=== PATIENT | female | born 1970 | race Caucasian/White ===

== ENCOUNTER → 2017-03-11 | Outpatient (CLI) | payer BC ==
--- NOTE | 2017-03-11 09:27 | FL ---
EXAMINATION TYPE: FL barium swallow DATE OF EXAM: 03/11/2017 9:01 AM CLINICAL HISTORY: History of acid reflux for years on medication. History of prior esophageal dilatat ion for narrowing per patient. History of pyloric stenosis per patient. Dysphasia per order. TECHNIQUE: A double contrast esophagram is performed utilizing air and barium. A total of 54 second s of fluoroscopic time was utilized during procedure. COMPARISON: None FINDINGS: The esophagus shows normal motility and emptying into the stomach. No evidence of hiatal h ernia or significant stricture noted. No intraluminal mass identified. No significant gastroesophagea l reflux was seen during real time performance of this study. IMPRESSION: No significant abnormality is seen currently.
== END | disposition home or self-care (01) ==
LOC: RADFLWHC 08:30
PROVIDERS: ATTEND Surgery
DX: K21.9 Gastro-esophageal reflux disease without esophagitis (principal)
CPT/HCPCS: 74220

== ENCOUNTER → 2017-05-08 | Outpatient (CLI) | payer BC ==
[2017-05-08 10:13] LABS: Basophils % (A) 1 %; CH 30.4; CHCM 32.6; Eosinophils # (A) 0.1 k/uL (0-0.7); Eosinophils % (A) 2 %; HCT 41.8 % (34.0-46.0); HDW 2.34; HGB 14.1 gm/dL (11.4-16.0); Luc % (Auto) 2; Lymphocytes # (A) 1.1 k/uL (1.0-4.8); Lymphocytes % (A) 25 %; MCH 31.7 pg (25.0-35.0); MCHC 33.8 g/dL (31.0-37.0); MCV 93.7 fL (80.0-100.0); Mean Platelet Volume 7.4; Monocytes # (A) 0.4 k/uL (0-1.0); Monocytes % (A) 8 %; Neutrophils # (A) 2.7 k/uL (1.3-7.7); Neutrophils % (A) 62 %; RBC 4.46 m/uL (3.80-5.40); WBC 4.3 k/uL (3.8-10.6); WBC (Perox) 4.41
[2017-05-08 10:28] LABS: ALT 29 U/L (9-52); AST 22 U/L (14-36); Alkaline Phosphatase 60 U/L (38-126); Anion Gap 10 mmol/L; Blood Urea Nitrogen 16 mg/dL (7-17); Calcium 9.3 mg/dL (8.4-10.2); Carbon Dioxide 22 mmol/L (22-30); Chloride 110 mmol/L (98-107); Cholesterol 167 mg/dL (<200); Glucose 87 mg/dL (74-99); HDL Cholesterol 62 mg/dL (40-60); Iron 47 ug/dL (37-170); Non-African American GFR(MDRD) >60 (>60 ml/min/1.73 sqM); Potassium 4.1 mmol/L (3.5-5.1); Sodium 142 mmol/L (137-145); Total Bilirubin 0.5 mg/dL (0.2-1.3); Total Protein 7.1 g/dL (6.3-8.2); Triglycerides 95 mg/dL (<150)
[2017-05-08 10:37] LABS: % Iron Saturation 13.9 % (20-50); Total Iron Binding Capacity 337 ug/dL (265-497)
== END | disposition home or self-care (01) ==
LOC: LABWHC1 07:58
PROVIDERS: ATTEND Family Medicine
DX: Z00.00 Encounter for general adult medical examination without abnormal findings (principal)
CPT/HCPCS: 36415; 80053; 80061; 83540; 83550; 84443; 85025

== ENCOUNTER → 2019-05-10 | Outpatient (CLI) | payer BC ==
[2019-05-10 12:08] LABS: HCT 44.8 % (34.0-46.0); HGB 13.7 gm/dL (11.4-16.0); MCHC 30.5 g/dL (31.0-37.0); Mean Platelet Volume 6.6; Platelet Count 255 k/uL (150-450); RBC 4.72 m/uL (3.80-5.40); RDW 13.5 % (11.5-15.5); WBC 3.8 k/uL (3.8-10.6)
[2019-05-10 12:11] LABS: Partial Thromboplastin Time 24.8 sec (22.0-30.0); Prothrombin Time 10.5 sec (9.0-12.0)
[2019-05-10 18:29] LABS: Iron Saturation 23.9 (12.00-45.00)
[2019-05-10 18:30] LABS: Albumin 4.4 g/dL (3.80-4.90); Albumin/Globulin Ratio 1.52 (1.60-3.17); Anion Gap 8.8 mmol/L (4.00-12.00); BUN/Creat Ratio 13.33 Ratio (12.00-20.00); Calcium 9.4 mg/dL (8.7-10.3); Carbon Dioxide 23.2 mmol/L (21.6-31.8); Globulin 2.9 g/dL (1.6-3.3); LDL Cholesterol,Calculated 118.4 mg/dL (0.0-131.0); Magnesium 2.1 mg/dL (1.5-2.4); Phosphorus 3.9 mg/dL (2.4-5.1); Potassium 4.1 mmol/L (3.5-5.5); Total Bilirubin 0.7 mg/dL (0.3-1.2); Total Protein 7.3 g/dL (6.2-8.2); VLDL Calculation 16.6 mg/dL (5.00-40.00)
[2019-05-10 18:37] LABS: Vitamin D 25 Hydroxy 26.6 ng/mL (30.0-100.0)
[2019-05-10 19:00] LABS: Folate, Serum 14.2 ng/mL
[2019-05-11 12:33] LABS: Zinc, Serum 92 ug/dL (60-130)
[2019-05-11 14:35] LABS: Vitamin A 46 ug/dL (38-106)
[2019-05-12 06:06] LABS: Vit B1(Thiamine) 66 ug/L (38-122)
== END | disposition home or self-care (01) ==
LOC: LABWHC1 11:30
PROVIDERS: ATTEND Surgery Plastic and Reconstructive Surgery
DX: E66.01 Morbid (severe) obesity due to excess calories (principal); E21.1 Secondary hyperparathyroidism, not elsewhere classified; D50.9 Iron deficiency anemia, unspecified; K90.9 Intestinal malabsorption, unspecified; E55.9 Vitamin D deficiency, unspecified; K74.1 Hepatic sclerosis; N19 Unspecified kidney failure; K50.90 Crohn's disease, unspecified, without complications
CPT/HCPCS: 36415; 80053; 80061; 82306; 82525; 82607; 82728; 82746; 83540; 83550; 83735; 84100; 84134; 84255; 84425; 84443; 84590; 84630; 85027; 85610; 85730

== ENCOUNTER → 2019-07-20 | Outpatient (CLI) | payer BC ==
--- NOTE | 2019-07-22 10:54 | MM ---
Reason for exam: screening (asymptomatic). Last mammogram was performed 3 years ago. History: Patient is postmenopausal. Physical Findings: A clinical breast exam by your physician is recommended on an annual basis and results should be correlated with mammographic findings. MG Screening Mammo w CAD Bilateral CC and MLO view(s) were taken. XCCL view(s) were taken of the right breast. Prior study comparison: July 29, 2016, bilateral MG screening mammo w CAD. August 15, 2014, bilateral MG screening mammo w CAD. The breast tissue is extremely dense which could obscure a lesion on mammography. No suspicious abnormality on the right breast. Left upper outer quadrant periareolar focal asymmetry, possible skin mass. ASSESSMENT: Incomplete: need additional imaging evaluation, BI-RAD 0 RECOMMENDATION: Ultrasound of the left breast. [facility] will attempt to contact patient to return for ultrasound.
== END | disposition home or self-care (01) ==
LOC: RADMAMWWP 07:28
PROVIDERS: ATTEND Family Medicine
DX: Z12.31 Encounter for screening mammogram for malignant neoplasm of breast (principal)
CPT/HCPCS: 77067

== ENCOUNTER → 2019-08-03 | Outpatient (CLI) | payer BC ==
--- NOTE | 2019-08-03 09:09 | USB ---
Reason for exam: additional evaluation requested from abnormal screening. History: Patient is postmenopausal. Physical Findings: Nurse Summary: 0.5cm nodule at 12 o'clock nipple (nurse dw). US Breast Workup Limited LT Left limited breast ultrasound including focal area of concern, retroareolar and axilla demonstrates a 0.5 x 0.3 x 0.2cm cm oval, cystic lesion at 12 o'clock, a 0.6 x 0.3 x 0.2cm oval, irregular, hypoechoic lesion at 12 o'clock, a 0.4 x 0.2cm oval, complex, cystic lesion at 1 o'clock and a 2.2 x 1.6 x 1.2cm node at the axilla. May be very small cysts. 6 month follow up recommended. These results were verbally communicated with the patient and result sheet given to the patient on 08/03/19. ASSESSMENT: Probably benign, BI-RAD 3 RECOMMENDATION: Follow-up diagnostic mammogram and ultrasound of the left breast in 6 months.
== END | disposition home or self-care (01) ==
LOC: RADUSWWP 06:48
PROVIDERS: ATTEND Family Medicine
DX: R92.8 Other abnormal and inconclusive findings on diagnostic imaging of breast (principal)

== ENCOUNTER → 2020-06-04 | Outpatient (CLI) | payer BC ==
--- NOTE | 2020-06-04 15:10 | MM ---
Reason for exam: follow-up at short interval from prior study. Last mammogram was performed 10 months ago. History: Patient is postmenopausal. Physical Findings: Nurse Summary: 0.5cm nodule in the left breast at 12 o'clock (nurse mj). MG 3D Diag Mammo W/Cad K[facility] Bilateral CC and MLO view(s) were taken. Prior study comparison: July 20, 2019, bilateral MG screening mammo w CAD. July 29, 2016, bilateral MG screening mammo w CAD. The breast tissue is heterogeneously dense. This may lower the sensitivity of mammography. There is no new dominant lesion. These results were verbally communicated with the patient and result sheet given to the patient on 06/04/20. ASSESSMENT: Incomplete: need additional imaging evaluation, BI-RAD 0 RECOMMENDATION: Ultrasound of the left breast. (palpable)
--- NOTE | 2020-06-04 15:13 | USB ---
Reason for exam: additional evaluation requested from abnormal screening. History: Patient is postmenopausal. US Breast Limited LT Left limited breast ultrasound including focal area of concern, retroareolar and axilla demonstrates a 0.5 x 0.3 x 0.2cm oval, cystic, stable lesion at 12 o'clock BB, a 0.5 x 0.4 x 0.2cm oval, irregular, hypoechoic, stable lesion at 12 o'clock BB, a 0.3 x 0.4 x 0.3cm oval, cystic, stable lesion at 1 o'clock and a 1.5 x 1.2 x 0.8cm oval, benign lymph node at the axilla, retained fatty hilum. These results were verbally communicated with the patient and result sheet given to the patient on 06/04/20. ASSESSMENT: Benign, BI-RAD 2 RECOMMENDATION: Routine screening mammogram of both breasts in 1 year.
== END | disposition home or self-care (01) ==
LOC: RADMAMWWP 07:09
PROVIDERS: ATTEND Family Medicine
DX: N63.20 Unspecified lump in the left breast, unspecified quadrant (principal)
CPT/HCPCS: 77062; 77066

== ENCOUNTER → 2020-12-13 | Outpatient (CLI) | payer BC ==
[2020-12-13 10:56] LABS: HGB 14.3 g/dL (12.0-15.0); MCH 31.5 pg (27.0-32.0); MCHC 33.3 g/dL (32.0-37.0); MCV 94.7 fL (80.0-97.0); Mean Platelet Volume 9.6 fL (9.5-12.2); Platelet Count 232 X 10*3/uL (140-440); RBC 4.54 X 10*6/uL (4.10-5.20); RDW 12.6 % (11.5-14.5); WBC 4.67 X 10*3/uL (4.50-10.00)
[2020-12-13 12:57] LABS: African American GFR (CKD) 98.9 (60.0-200.0); Albumin 4.4 g/dL (3.80-4.90); Albumin/Globulin Ratio 1.83 (1.60-3.17); Anion Gap 9.6 mmol/L (4.00-12.00); BUN/Creat Ratio 18.75 Ratio (12.00-20.00); Calcium 9.5 mg/dL (8.7-10.3); Carbon Dioxide 20.4 mmol/L (21.6-31.8); Chol/HDL Ratio 2.84; Globulin 2.4 g/dL (1.6-3.3); LDL Cholesterol,Calculated 112.2 mg/dL (0.0-131.0); Non-African American GFR(CKD) 85.4 (60.0-200.0); Total Bilirubin 0.5 mg/dL (0.2-1.2); Total Protein 6.8 g/dL (6.2-8.2); VLDL Calculation 14.8 mg/dL (5.00-40.00)
== END | disposition home or self-care (01) ==
LOC: LABWHC1 07:45
PROVIDERS: ATTEND Family Medicine
DX: Z00.00 Encounter for general adult medical examination without abnormal findings (principal)
CPT/HCPCS: 36415; 80053; 80061; 85027

== ENCOUNTER → 2021-11-21 | Outpatient (CLI) | payer BC, MEDICAID ==
--- NOTE | 2021-11-25 09:31 | MM ---
Reason for exam: screening (asymptomatic). Last mammogram was performed 1 year and 6 months ago. History: Patient is postmenopausal. Physical Findings: A clinical breast exam by your physician is recommended on an annual basis and results should be correlated with mammographic findings. MG 3D Screening Mammo W/Cad Bilateral CC, MLO, and XCCL view(s) were taken. Prior study comparison: June 04, 2020, bilateral MG 3d diag mammo w/cad KER[facility]E. July 20, 2019, bilateral MG screening mammo w CAD. The breast tissue is heterogeneously dense. This may lower the sensitivity of mammography. No significant changes when compared with prior studies. ASSESSMENT: Negative, BI-RAD 1 RECOMMENDATION: Routine screening mammogram of both breasts in 1 year.
== END | disposition home or self-care (01) ==
LOC: RADMAMWWP 09:15
PROVIDERS: ATTEND Family Medicine
DX: Z12.31 Encounter for screening mammogram for malignant neoplasm of breast (principal); Z78.0 Asymptomatic menopausal state
CPT/HCPCS: 77063; 77067

== ENCOUNTER → 2022-06-02 | Outpatient (CLI) | payer MEDICAID ==
--- NOTE | 2022-06-02 15:28 | US ---
EXAMINATION TYPE: US gallbladder DATE OF EXAM: 06/02/2022 COMPARISON: CLINICAL HISTORY: R10.13 EPIGASTRIC PAIN. Epigastric pain per patient. that radiates to the back. TECHNIQUE: Multiple sonographic images of the right upper quadrant are obtained. FINDINGS: EXAM MEASUREMENTS: Liver Length: 14.8 cm Gallbladder Wall: 0.2 cm CBD: 0.3 cm Right Kidney: 9.9 x 5.0 x 3.9 cm Pancreas: wnl Liver: wnl Gallbladder: wnl Evidence for sonographic Smith's sign: neg CBD: wnl Right Kidney: No hydronephrosis or masses seen IMPRESSION: 1. Unremarkable right upper quadrant ultrasound.
== END | disposition home or self-care (01) ==
LOC: RADUSWWP 14:10
PROVIDERS: ATTEND Surgery Plastic and Reconstructive Surgery
DX: R10.13 Epigastric pain (principal)
CPT/HCPCS: 76705

== ENCOUNTER → 2022-06-27 | Outpatient (CLI) | payer MEDICAID ==
--- NOTE | 2022-06-27 15:08 | NM ---
EXAMINATION TYPE: NM hepatobiliary w EF DATE OF EXAM: 06/27/2022 COMPARISON: US GB 06/02/2022. HISTORY: Cholecystitis per order. Intermittent pain. Heart burn and reflux. TECHNIQUE: After the intravenous administration of 4.4 mCi Tc 99m Mebrofenin hepatobiliary scintigrap hy is performed. Immediate images post injection. FINDINGS: There is satisfactory initial accumulation of tracer by the liver. The gallbladder is visualized wit hin 15 minutes. The small bowel activity is not well seen even after 60 minutes. At one hour 8 ounc es of oral ensure plus is given to mimic CCK and gallbladder ejection fraction is calculated at 80 %, not deviated from the normal range. Therefore there is no scintigraphic evidence of cystic or commo n bile duct obstruction to suggest acute cholecystitis or gallbladder dyskinesia. IMPRESSION: Exam is within normal limits.
== END | disposition home or self-care (01) ==
LOC: RADNMMAIN 12:17
PROVIDERS: ATTEND Surgery Plastic and Reconstructive Surgery
DX: K81.1 Chronic cholecystitis (principal)
CPT/HCPCS: 78226; A9537

== ENCOUNTER → 2023-07-06 | Outpatient (CLI) | payer OTHER ==
--- NOTE | 2023-07-06 13:37 | US ---
EXAMINATION TYPE: US venous doppler duplex LE RT DATE OF EXAM: 07/06/2023 1:15 PM COMPARISON: NONE CLINICAL INDICATION: Female, 52 years old with history of R60.0 EDEMA, M79.66 LEG PAIN; Pt states juany n anterior right ankle/ no known prior DVT SIDE PERFORMED: Right TECHNIQUE: The lower extremity deep venous system is examined utilizing real time linear array sonog denny with graded compression, doppler sonography and color-flow sonography. VESSELS IMAGED: Common Femoral Vein Deep Femoral Vein Greater Saphenous Vein * Femoral Vein Popliteal Vein Small Saphenous Vein * Proximal Calf Veins (* superficial vessels) Right Leg: Negative for DVT IMPRESSION: Grayscale, color doppler, spectral doppler imaging performed of the deep veins of the lo wer extremities. There is normal flow, compressibility, vascular waveforms.
== END | disposition home or self-care (01) ==
LOC: RADUSWWP 12:58
PROVIDERS: ATTEND Family Medicine
DX: M79.661 Pain in right lower leg (principal); R60.0 Localized edema

== ENCOUNTER 2025-05-08 06:27 | Day surgery (SDC) | payer OTHER ==
[2025-05-04 15:07] VITALS: BMI 20.8
[2025-05-08] MEDS ORDERED: LIDOCAINE 1% (10MG/ML) FOR IV START INTRADERMA PRN (06:38)
[2025-05-08 06:48] VITALS: TEMP 97.6
[2025-05-08] MEDS: LACTATED RINGERS 1,000 ML IV SCH (06:58)
[2025-05-08] MEDS: IV FLUID CONTINUATION 1,000 ML IV ONE ×2 (06:59→07:28)
[2025-05-08] MEDS ORDERED: PROPOFOL 10 MG/ML 20 ML VIAL IV ONE (07:30)
[2025-05-08] MEDS ORDERED: LIDOCAINE 1% INJ 10MG/ML (20 ML MDV) ONE (07:30)
--- NOTE | 2025-05-08 07:51 | P.GSHP ---
History of Present Illness H&P Date: 05/08/25 CHIEF COMPLAINT: Dysphagia and colon screen HISTORY OF PRESENT ILLNESS: The patient is a 54-year-old male who presents with dysphagia, gastroesophageal reflux disease and need for colon screen. Upper and lower endoscopy were offered for further evaluation and management. PAST MEDICAL HISTORY: Please see list. PAST SURGICAL HISTORY: Please see list. MEDICATIONS: Please see list. ALLERGIES: Please see list. SOCIAL HISTORY: No illicit drug use FAMILY HISTORY: No reports of Crohn disease or ulcerative colitis. REVIEW OF ORGAN SYSTEMS: CONSTITUTIONAL: No reports of fevers or chills. GI: Denies any blood in stools or constipation. PHYSICAL EXAM: VITAL SIGNS: Stable GENERAL: Well-developed pleasant in no acute distress. HEENT: No scleral icterus. Extraocular movements grossly intact. Moist buccal mucosa. NECK: Supple without lymphadenopathy. CHEST: Unlabored respirations. Equal bilateral excursions. CARDIOVASCULAR: Regular rate and rhythm. Distal 2+ pulses. ABDOMEN: Soft, nondistended. MUSCULOSKELETAL: No clubbing, cyanosis, or edema. ASSESSMENT: 1. Dysphagia and gastroesophageal reflux disease 2. Colon screen. PLAN: 1. Recommend proceeding with an upper and lower endoscopy Past Medical History Past Medical History: Eye Disorder Additional Past Medical History / Comment(s): glaucoma History of Any Multi-Drug Resistant Organisms: None Reported Past Surgical History: Hysterectomy, Orthopedic Surgery Additional Past Surgical History / Comment(s): sean. cataract rem., corneal transplant x2, left knee scope Additional Past Anesthesia/Blood Transfusion Reaction / Comment(s): low blood pressure with anesthesia Past Psychological History: Anxiety, Depression Smoking Status: Never smoker Past Alcohol Use History: Occasional Past Drug Use History: None Reported Medications and Allergies Home Medications Medication Instructions Recorded Confirmed Type Brimonidine Eye Drops 1 dose BOTH EYES DIRECTED 05/04/25 05/08/25 History Citalopram Hydrobromide [CeleXA] 10 mg PO HS 05/04/25 05/08/25 History acetaZOLAMIDE [Diamox] 250 mg PO HS 05/04/25 05/08/25 History prednisoLONE ACETATE 1% OPHTH 1 drop BOTH EYES BID 05/04/25 05/08/25 History [Pred Forte 1%] timoloL [timoloL 0.5% Ophth Soln] 1 drop BOTH EYES BID 05/04/25 05/08/25 History Allergies Allergy/AdvReac Type Severity Reaction Status Date / Time amoxicillin [From Augmentin] AdvReac Nausea & Verified 05/08/25 06:45 Vomiting & Diarrhea clavulanic acid AdvReac Nausea & Verified 05/08/25 06:45 [From Augmentin] Vomiting & Diarrhea Surgical - Exam Vital Signs Temp Pulse Resp BP Pulse Ox 97.6 F 75 18 99/77 100 05/08/25 06:41 05/08/25 06:41 05/08/25 06:41 05/08/25 06:41 05/08/25 06:41
--- NOTE | 2025-05-08 08:06 | P.PCN ---
Date of Procedure: 05/08/25 Description of Procedure: PREOPERATIVE DIAGNOSIS: Dysphagia. POSTOPERATIVE DIAGNOSIS: Schatzki's ring Esophageal stenosis Diaphragmatic hiatal hernia Duodenitis OPERATION: Esophagogastroduodenoscopy rigid Norwegian dilator 51 Fr, upper esophageal sphincter. Esophagogastroduodenoscopy with cold forcep biopsies antrum, duodenum, esophagus SURGEON: Areli Gutierrez MD ANESTHESIA: MAC. INDICATIONS: The patient is a 54-year-old female who presents with dysphagia. She reports troubles with swallowing pills along her upper throat. Upper endoscopy was offered for further diagnostic evaluation and treatment. DESCRIPTION: The patient was brought into the endoscopy suite and laid in the left lateral decubitus position. An Olympus gastroscope was carefully passed along the posterior oropharynx. Upon entry into the proximal esophagus, a mild stricture was identified consistent with hypertensive upper esophageal sphincter. No erosion were found along the distal esophagus or ulcerations. The stomach was entered. The scope was passed to the second portion and third portion of the duodenum was unremarkable. Retroflexion of the scope confirmed Hill grade 2 lower esophageal valve without recurrent diaphragmatic hiatal hernia. A guidewire was placed through the scope into the stomach. The scope was removed. A 51-Upper Sorbian rigid dilator was placed to 45 cm from the incisors. The dilator was left in place between 2-3 minutes. The dilator and guidewire were removed. The scope was reentered along the proximal esophagus whereby the stricture had resolved of the upper esophagus. Mild bleeding was identified of the upper esophageal stenosis. Cold forcep biopsies were obtained of the esophagus, duodenum and antrum. No full-thickness injury was found along the mucosa. The stomach was desufflated. The patient tolerated the procedure well. FINDINGS: Squamocolumnar junction 37 cm from the incisors. Diaphragmatic hiatus at 40 cm. Diaphragmatic hiatal hernia 3 cm Hill grade 2 lower esophageal valve. LA grade B erosive esophagitis. Biopsies obtained Upper esophageal stenosis dilated to 51 Upper Sorbian Duodenitis with biopsies obtained Gastritis with biopsies obtained RECOMMENDATIONS: Upper endoscopy as needed. Short-term antibiotics for upper esophageal stenosis
--- NOTE | 2025-05-08 08:11 | P.PCN ---
Date of Procedure: 05/08/25 Description of Procedure: PREOPERATIVE DIAGNOSIS: History of colon polyps Colonoscopy screening. POSTOPERATIVE DIAGNOSIS: Colonoscopy screening. Internal/external hemorrhoids, grade 3 OPERATION: Colonoscopy to the cecum, ileocecal valve and appendiceal orifice. SURGEON: Areli Gutierrez MD. ANESTHESIA: MAC. INDICATIONS: The patient is a 54-year-old female who presents for colonoscopy screening. Benefits and risks were described and informed consent was obtained. DESCRIPTION OF PROCEDURE: The patient had undergone Suprep. The patient had been brought into the operating room and laid in the left lateral decubitus position. After adequate intravenous sedation, the rectum was examined with 2% lidocaine jelly. External hemorrhoids were encountered. The rectal tone was within normal limits. No lesions were palpated in the rectal vault. An Olympus colonoscope was advanced until the cecum, ileocecal valve and appendiceal orifice were clearly viewed. The prep was good. Scattered diverticulosis was encountered. No colonic polyps were found. No evidence of focal colitis was found. Retroflexion of the scope demonstrated grade 3 internal hemorrhoids without active bleeding or inflammation. The colon was desufflated. The patient had tolerated the procedure well. Withdrawal time was over 6 minutes. FINDINGS: Aronchick preparation quality scale 2+ (1-5) Internal hemorrhoids, grade 3 No large scattered diverticulosis External prolapsed hemorrhoids, grade 3 No arteriovenous malformations. No adenomatous polyps. No focal colitis. RECOMMENDATIONS: Lower endoscopy in 5 years2029 Plan - Discharge Summary Discharge Rx Participant: No New Discharge Prescriptions: New Amoxic-Pot Clav 400-57Mg/5Ml [Augmentin 400-57 mg/5 ml Susp] 10 ml PO Q12H 10 Days #200 ml Omeprazole [PriLOSEC] 40 mg PO DAILY #14 cap Continue timoloL [timoloL 0.5% Ophth Soln] 1 drop BOTH EYES BID Brimonidine Eye Drops 1 dose BOTH EYES DIRECTED prednisoLONE ACETATE 1% OPHTH [Pred Forte 1%] 1 drop BOTH EYES BID acetaZOLAMIDE [Diamox] 250 mg PO HS Citalopram Hydrobromide [CeleXA] 10 mg PO HS Discharge Medication List Brimonidine Eye Drops 1 dose BOTH EYES DIRECTED 05/04/25 [History] Citalopram Hydrobromide [CeleXA] 10 mg PO HS 05/04/25 [History] acetaZOLAMIDE [Diamox] 250 mg PO HS 05/04/25 [History] prednisoLONE ACETATE 1% OPHTH [Pred Forte 1%] 1 drop BOTH EYES BID 05/04/25 [History] timoloL [timoloL 0.5% Ophth Soln] 1 drop BOTH EYES BID 05/04/25 [History] Amoxic-Pot Clav 400-57Mg/5Ml [Augmentin 400-57 mg/5 ml Susp] 10 ml PO Q12H 10 Days #200 ml 05/08/25 [Rx] Omeprazole [PriLOSEC] 40 mg PO DAILY #14 cap 05/08/25 [Rx] Follow up Appointment(s)/Referral(s): Areli Gutierrez MD [STAFF PHYSICIAN] - As Needed Patient Instructions/Handouts: Hiatal Hernia (ED), Duodenitis (DC), Esophageal Dilation (DC) Activity/Diet/Wound Care/Special Instructions: Repeat colonoscopy 5 years, 2030 Avoid sharp edges of the pills or sharp edges foods. Salt water gargle twice daily for 5 days. Use antibiotics as prescribed. Recommend crushing tablets for the next 5 days Omeprazole - open capsule and take with yogurt or applesauce Discharge Disposition: HOME SELF-CARE
[2025-05-08] MEDS: ONDANSETRON 4 MG/2 ML VIAL IVP STA (08:29)
[2025-05-08] MEDS: fentaNYL (PF) 50 MCG/ML 2 ML AMP IVP PRN (08:30)
[2025-05-08 08:46] VITALS: RESP 14
[2025-05-08] MEDS ORDERED: SODIUM CHLORIDE 0.9% 1,000 ML IV ONE (08:47)
[2025-05-08 09:09] VITALS: BP 101/66; PULSE 60
== END 2025-05-08 10:10 | disposition home or self-care (01) ==
LOC: ORWHC2ENDO 06:27
PROVIDERS: ATTEND Surgery Plastic and Reconstructive Surgery
DX: Z12.11 Encounter for screening for malignant neoplasm of colon (principal); Z86.0100 Personal history of colon polyps, unspecified; K29.80 Duodenitis without bleeding; K29.50 Unspecified chronic gastritis without bleeding; K21.00 Gastro-esophageal reflux disease with esophagitis, without bleeding; K44.9 Diaphragmatic hernia without obstruction or gangrene; K22.2 Esophageal obstruction; K64.2 Third degree hemorrhoids; K64.4 Residual hemorrhoidal skin tags; Z79.899 Other long term (current) drug therapy; Z88.0 Allergy status to penicillin; Z88.1 Allergy status to other antibiotic agents
CPT/HCPCS: 45378; 43239; 43248; J2405; J2003; J3010; J2704; 88305

== ENCOUNTER → 2025-05-10 | Outpatient (CLI) | payer OTHER ==
--- NOTE | 2025-05-10 12:36 | MM ---
Reason for Exam: Screening (asymptomatic). Last mammogram was performed 3 year(s) and 6 month(s) ago. Patient History: Menarche at age 12. First Full-Term at age 23. Left ovary removed at age 42. Hysterectomy at age 42. Postmenopausal. Risk Values: Chelsey 5 year model risk: 1.1%. NCI Lifetime model risk: 7.4%. Prior Study Comparison: 07/20/2019 Bilateral Screening Mammogram, [facility]. 06/04/2020 Bilateral Diagnostic Mammogram, [facility]. 11/21/2021 Bilateral Screening Mammogram, [facility]. Tissue Density: The breasts are heterogeneously dense, which may obscure small masses. Findings: Analyzed By CAD. There is no suspicious group of microcalcifications or new suspicious mass in either breast. Overall Assessment: Negative, BI-RAD 1 Management: Screening Mammogram of both breasts in 1 year. . Patient should continue monthly self-breast exams. A clinical breast exam by your physician is recommended on an annual basis. This exam should not preclude additional follow-up of suspicious palpable abnormalities. Note on Chelsey scores and lifetime risk: 1. A Chelsey score greater than 3% is considered moderate risk. If this is the case, consider specialist referral to assess eligibility for a risk reducing agent. 2. If overall lifetime risk for the development of breast cancer is 20% or higher, the patient may qualify for future screening with alternating mammogram and breast MRI. [facility], , 05/10/2025 12:33 PM. Electronically signed and approved by: John Tamayo M.D. Radiologis
== END | disposition home or self-care (01) ==
LOC: RADMAMWWP 12:01
PROVIDERS: ATTEND Family Medicine
DX: Z12.31 Encounter for screening mammogram for malignant neoplasm of breast (principal); R92.333 Mammographic heterogeneous density, bilateral breasts; Z78.0 Asymptomatic menopausal state
CPT/HCPCS: 77063; 77067